=== PATIENT | female | born 1955 | race Caucasian/White ===

== ENCOUNTER → 2016-08-04 | Outpatient (CLI) | payer BC | END | disposition short-term general hospital (02) | LOC: CLNEPH 12:52 | DX: E11.22 Type 2 diabetes mellitus with diabetic chronic kidney disease (principal); I12.0 Hypertensive chronic kidney disease with stage 5 chronic kidney disease or end stage renal disease; N18.5 Chronic kidney disease, stage 5; R21 Rash and other nonspecific skin eruption ==

== ENCOUNTER → 2016-09-08 | Outpatient (CLI) | payer BC | END | disposition short-term general hospital (02) | LOC: CLNEPH 14:29 | DX: E11.22 Type 2 diabetes mellitus with diabetic chronic kidney disease (principal); E11.21 Type 2 diabetes mellitus with diabetic nephropathy; I12.9 Hypertensive chronic kidney disease with stage 1 through stage 4 chronic kidney disease, or unspecified chronic kidney disease; N18.5 Chronic kidney disease, stage 5; R21 Rash and other nonspecific skin eruption; N25.81 Secondary hyperparathyroidism of renal origin ==

== ENCOUNTER → 2016-10-06 | Outpatient (CLI) | payer BC | END | disposition short-term general hospital (02) | LOC: CLNEPH 14:20 | DX: I12.0 Hypertensive chronic kidney disease with stage 5 chronic kidney disease or end stage renal disease (principal); E11.22 Type 2 diabetes mellitus with diabetic chronic kidney disease; N18.5 Chronic kidney disease, stage 5; N06.1 Isolated proteinuria with focal and segmental glomerular lesions; L40.9 Psoriasis, unspecified; E87.6 Hypokalemia; N25.81 Secondary hyperparathyroidism of renal origin; N17.8 Other acute kidney failure; R21 Rash and other nonspecific skin eruption ==